=== PATIENT | female | born 1960 | race Caucasian/White ===

== ENCOUNTER 2021-08-09 18:06 | Inpatient (IN) | payer MEDICAID ==
[~2021-08-09] VITALS: Ht 157.5 cm; Wt 45.0 kg
[~2021-08-09 18:06] MED LIST: HYDR-4383 PO; PANT-47 PO; PANT40TA39 PO; RANI-648 PO
[2021-08-09] MEDS ORDERED: normal saline 1000ML IV soln IVB ONE (18:25)
[2021-08-09 19:24] LABS: BASOPHILS # (AUTO) 0.1 X10'3 (0-0.2); BASOPHILS % (AUTO) 0.4 % (0-1); EOSINOPHILS # (AUTO) 0.1 X10'3 (0-0.9); EOSINOPHILS % (AUTO) 0.4 % (0-6); HEMATOCRIT 29.1 % (35.0-45.0); HEMOGLOBIN 9.6 g/dl (12.0-16.0); LYMPHOCYTES # (AUTO) 1.7 X10'3 (1.1-4.8); LYMPHOCYTES % (AUTO) 8.4 % (21-51); MEAN CORPUSCULAR HEMOGLOBIN 30.3 PG (27.0-31.0); MEAN CORPUSCULAR HGB CONC 33.1 g/dL (33.0-36.5); MEAN CORPUSCULAR VOLUME 91.5 FL (78-98); MEAN PLATELET VOLUME 8.4 FL (7.4-10.4); MONOCYTES # (AUTO) 1.2 X10'3 (0-0.9); MONOCYTES % (AUTO) 5.8 % (2-12); PLATELET COUNT 308 X10'3 (140-440); RED BLOOD COUNT 3.18 X10'6 (4.20-5.60); RED CELL DISTRIBUTION WIDTH 20.2 % (11.5-14.5)
[2021-08-09 19:36] LABS: LACTIC SEPSIS 1.6 MMOL/L (0.4-2.0)
--- NOTE | 2021-08-09 19:41 | NUR ---
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 PT REFUSED BIOPSY , DIAGNOSED BY UA. PT WAS GOING TO IN HER ROOM AND WAS POSSIBLY MANAGING PAIN WITH RX MORPHINE AND POSSIBLE HERION. PT HAS LONG HISTORY OF DRUG USE AND QUIT USING METH ABOUT 3 MONTHS AGO AFTER CX DIAGNOSIS. PT HAD RECENT VISIT W/ BROTHER AND SON AND THEN DECIDED SHE WOULD GET A BIOPSY. BROTHER STATES HE SPOKE W/ PT THIS MORNING AND SHE WAS MINIMALLY RESPONSIVE BUT DID TALK TO HIM.
[2021-08-09 19:45] LABS: ALANINE AMINOTRANSFERASE 13 U/L (12-78); ALBUMIN 2.4 G/DL (3.4-5.0); ALBUMIN/GLOBULIN RATIO 0.5 (1.1-1.5); ALKALINE PHOSPHATASE 334 IU/L (46-116); AMMONIA < 10 UMOL/L (11-32); ANION GAP 11 (8-16); ASPARTATE AMINO TRANSFERASE 38 U/L (10-37); BILIRUBIN,TOTAL 0.8 MG/DL (0.1-1.0); BLOOD UREA NITROGEN 13 MG/DL (7-18); BUN/CREATININE RATIO 22.8 (6.6-38.0); CALCIUM 10.1 MG/DL (8.5-10.1); CHLORIDE 99 MMOL/L (99-107); CREATININE 0.57 MG/DL (0.40-0.90); GLUCOSE 85 MG/DL (70-104); POTASSIUM 3.8 MMOL/L (3.5-5.1); SODIUM 137 MMOL/L (135-145); TOTAL CARBON DIOXIDE 27.1 MMOL/L (24-32); TOTAL PROTEIN 7.1 G/DL (6.4-8.2); eGFR > 90 ML/MIN
--- NOTE | 2021-08-09 19:48 | NUR ---
ZACK MELÉNDEZ (BROTHER) [phone] FREDERICK ACLDERA (SON) [phone] NEXT OF KIN
[2021-08-09 19:51] LABS: TROPONIN I < 0.04 NG/ML (0.0-0.05)
[2021-08-09 19:54] LABS: ETHANOL < 0.010 GM/DL (0.0-0.010)
[2021-08-09 20:41] LABS: ANISOCYTOSIS 3+; PLATELET ESTIMATE NORMAL; TOTAL CELLS COUNTED 100
[2021-08-09 20:42] LABS: POLYCHROMASIA FEW; STOMATOCYTES FEW
[2021-08-09 21:12] LABS: CLARITY,URINE CLEAR (Clear); COLOR,URINE YELLOW (Yellow); UA COLLECTION TYPE CLN CATCH MIDSTREAM
[2021-08-09 21:13] LABS: GLUCOSE, URINE NEGATIVE (Neg); KETONES,URINE 40 mg/dl (Neg); LEUKOCYTE ESTERASE ,URINE NEGATIVE (Neg); NITRITES, URINE NEGATIVE (Neg); OCCULT BLOOD,URINE NEGATIVE (Neg); PROTEIN,URINE NEGATIVE (Neg); URINE AMPHETAMINE SCREEN POSITIVE (Neg); URINE BARBITUATE SCREEN NEGATIVE (Neg); URINE BENZODIAZEPINES SCREEN NEGATIVE (Neg); URINE CANNABINOID SCREEN POSITIVE (Neg); URINE COCAINE SCREEN NEGATIVE (Neg); URINE METHADONE SCREEN NEGATIVE (Neg); URINE OPIATE SCREEN POSITIVE (Neg); URINE PHENCYCLIDINE SCREEN NEGATIVE (Neg); UROBILINOGEN,URINE >=8.0 E.U/dL (0.2-1.0)
[2021-08-09] MEDS ORDERED: normal saline 1000ML IV soln IV ONE (22:00)
[2021-08-09] MEDS ORDERED: CefTRIAXone 2gm/D5W 50ml BAG 50 ML IV ONE (22:00)
[2021-08-09] MEDS ORDERED: ondansetron/PF 4mg/2ml inj IV PRN (22:05)
[2021-08-09] MEDS ORDERED: potassium Cl 40MEQ/1/2NS 520ml 520 ML IV PRN (22:05)
[2021-08-09] MEDS ORDERED: MSC30T PO (22:08)
[2021-08-09] MEDS ORDERED: HYDR-3965 PO (22:17)
[2021-08-09] MEDS: normal saline 1000ml 1,000 ML IV SCH (22:46)
[2021-08-10] MEDS: normal saline 1000ml 1,000 ML IV SCH ×4 (01:10→23:41)
[2021-08-10 01:22] VITALS: BP 125/71
[2021-08-10] MEDS: dexamethasone 4mg/ml inj IV SCH ×3 (02:00→15:36)
[2021-08-10 06:47] LABS: BASOPHILS % (AUTO) 0.2 % (0-1); EOSINOPHILS # (AUTO) 0.1 X10'3 (0-0.9); EOSINOPHILS % (AUTO) 0.3 % (0-6); HEMATOCRIT 25.2 % (35.0-45.0); HEMOGLOBIN 8.3 g/dl (12.0-16.0); LYMPHOCYTES # (AUTO) 1.5 X10'3 (1.1-4.8); LYMPHOCYTES % (AUTO) 8.4 % (21-51); MEAN CORPUSCULAR HEMOGLOBIN 30.3 PG (27.0-31.0); MEAN CORPUSCULAR HGB CONC 32.8 g/dL (33.0-36.5); MEAN CORPUSCULAR VOLUME 92.4 FL (78-98); MEAN PLATELET VOLUME 8.6 FL (7.4-10.4); MONOCYTES % (AUTO) 5.8 % (2-12); NEUTROPHILS # (AUTO) 15.4 X10'3 (1.8-7.7); NEUTROPHILS % (AUTO) 85.3 % (42-75); PLATELET COUNT 275 X10'3 (140-440); RED BLOOD COUNT 2.73 X10'6 (4.20-5.60); RED CELL DISTRIBUTION WIDTH 20.5 % (11.5-14.5)
--- NOTE | 2021-08-10 06:50 | NUR ---
Received patient from ER at 0200 in catatonic state. VS stable and pt is in no apparent distress.
[2021-08-10 07:10] LABS: ALANINE AMINOTRANSFERASE 12 U/L (12-78); ALBUMIN 1.9 G/DL (3.4-5.0); ALBUMIN/GLOBULIN RATIO 0.5 (1.1-1.5); ALKALINE PHOSPHATASE 276 IU/L (46-116); ANION GAP 15 (8-16); ASPARTATE AMINO TRANSFERASE 33 U/L (10-37); BILIRUBIN,TOTAL 0.7 MG/DL (0.1-1.0); BLOOD UREA NITROGEN 11 MG/DL (7-18); BUN/CREATININE RATIO 22.4 (6.6-38.0); CALCIUM 8.8 MG/DL (8.5-10.1); CHLORIDE 105 MMOL/L (99-107); CREATININE 0.49 MG/DL (0.40-0.90); GLUCOSE 67 MG/DL (70-104); POTASSIUM 3.5 MMOL/L (3.5-5.1); SODIUM 138 MMOL/L (135-145); TOTAL CARBON DIOXIDE 18.4 MMOL/L (24-32); TOTAL PROTEIN 5.8 G/DL (6.4-8.2); eGFR > 90 ML/MIN
[2021-08-10] MEDS: pantoprazole 40 MG vial IV SCH (07:16)
[2021-08-10] MEDS: heparin, porcine 5000 units/ml vial SQ SCH ×2 (07:17→21:38)
[2021-08-10] MEDS: CefTRIAXone/D5W-Rocephin 1gm 50 ML IV SCH (07:34)
[2021-08-10] MEDS: K and/or MAG REPLACEMENT MC SCH ×2 (07:37→19:31)
--- NOTE | 2021-08-10 08:09 | NUR ---
Noted pt with a low BMI using documented wt of 45 kg, though isn't scaled. No recent scaled wt hx in EMR. Pt with AMS on admit, pending physical assessment. Per ED report pt well developed well nourished. Current BMI likely not accurate. Will continue to follow. Addendum: 08/10/21 at [address] Amended: Links added.
--- NOTE | 2021-08-10 11:27 | NUR ---
Pt's brother, Srini Marc, phoned for info. Pt is asleep and too lethargic to take his call. His number is [phone]. Srini said he is arranging to visit pt from out of state, along with his other sister, as soon as possible. Also, pt's boyfriend, Saul Luong ([phone]), phoned for information. Pt is too lethargic to take phone call. He stated he would like the pt or the pt's nurse to call him. WILIAN Talbert, notified.
--- NOTE | 2021-08-10 17:33 | NUR ---
Pt lying in bed. Alert and oriented to name. VS within normal limits. Pt only says "Cold Pepsi". Meds tolerated well this shift. Pt is not verbalizing pain but does not appear to be in pain. Update given to brother, Srini Marc, via telephone. Nurse informed that patient has not voided this shift. Pt voided a large amount around 1700 but unable to calculate due to incontinence. Will continue to monitor.
[2021-08-10 18:00] VITALS: BP 125/70
[2021-08-10] MEDS ORDERED: acetaminophen 120MG suppository, rectal RC PRN (18:25)
--- NOTE | 2021-08-10 18:53 | NUR ---
Patient in room [facility]. I have received report from CRISTIANO CEDEON and had the opportunity to ask questions and assume patient care.
[2021-08-10] MEDS: morphine 2 MG/ML inj. syringe IV PRN (23:44)
[2021-08-11] VITALS: BP 112/83
[2021-08-11] MEDS ORDERED: LIDOcaine 2% 10ml TOPICAL JELLY (Urojet) TP ONE (01:00)
[2021-08-11] MEDS: morphine 2 MG/ML inj. syringe IV PRN (05:40)
[2021-08-11] MEDS: normal saline 1000ml 1,000 ML IV SCH ×3 (05:40→21:31)
[2021-08-11 06:20] LABS: BASOPHILS % (AUTO) 0.1 % (0-1); EOSINOPHILS % (AUTO) 0 % (0-6); HEMATOCRIT 29.2 % (35.0-45.0); HEMOGLOBIN 9.3 g/dl (12.0-16.0); LYMPHOCYTES # (AUTO) 1.6 X10'3 (1.1-4.8); LYMPHOCYTES % (AUTO) 5.9 % (21-51); MEAN CORPUSCULAR HEMOGLOBIN 30.7 PG (27.0-31.0); MEAN CORPUSCULAR VOLUME 96.1 FL (78-98); MEAN PLATELET VOLUME 8.8 FL (7.4-10.4); MONOCYTES # (AUTO) 0.8 X10'3 (0-0.9); MONOCYTES % (AUTO) 3.1 % (2-12); NEUTROPHILS # (AUTO) 24.2 X10'3 (1.8-7.7); NEUTROPHILS % (AUTO) 90.9 % (42-75); PLATELET COUNT 320 X10'3 (140-440); RED BLOOD COUNT 3.03 X10'6 (4.20-5.60); RED CELL DISTRIBUTION WIDTH 21.3 % (11.5-14.5)
[2021-08-11 06:24] LABS: WHITE BLOOD COUNT 26.6 X10'3 (4.5-11.0)
--- NOTE | 2021-08-11 06:32 | NUR ---
Problems reprioritized. Patient report given, questions answered & plan of care reviewed with CRISTIANO CEDENO.
[2021-08-11 06:35] LABS: ALANINE AMINOTRANSFERASE 10 U/L (12-78); ALBUMIN 1.9 G/DL (3.4-5.0); ALBUMIN/GLOBULIN RATIO 0.5 (1.1-1.5); ALKALINE PHOSPHATASE 277 IU/L (46-116); ANION GAP 18 (8-16); ASPARTATE AMINO TRANSFERASE 25 U/L (10-37); BILIRUBIN,TOTAL 0.7 MG/DL (0.1-1.0); BLOOD UREA NITROGEN 12 MG/DL (7-18); CALCIUM 8.7 MG/DL (8.5-10.1); CHLORIDE 107 MMOL/L (99-107); CREATININE 0.63 MG/DL (0.40-0.90); GLUCOSE 86 MG/DL (70-104); POTASSIUM 3.7 MMOL/L (3.5-5.1); SODIUM 141 MMOL/L (135-145); eGFR > 90 ML/MIN
--- NOTE | 2021-08-11 06:44 | NUR ---
Critical lab of WBC 26.6 reported to Lacie at 0645.
[2021-08-11 07:15] LABS: LYMPHOCYTES % (MANUAL) 2 % (21-51); MONOCYTES % (MANUAL) 1 % (2-12); NEUTROPHILS % (MANUAL) 94 % (42-75); TOTAL CELLS COUNTED 100
[2021-08-11 07:16] LABS: ANISOCYTOSIS 3+; LARGE PLATELETS FEW; PLATELET ESTIMATE NORMAL
[2021-08-11 08:00] VITALS: BP 128/81
[2021-08-11] MEDS: K and/or MAG REPLACEMENT MC SCH ×2 (08:00→20:00)
[2021-08-11] MEDS: pantoprazole 40 MG vial IV SCH ×2 (09:10→09:16)
[2021-08-11] MEDS: heparin, porcine 5000 units/ml vial SQ SCH ×2 (09:10→21:29)
[2021-08-11] MEDS: acetaminophen 325mg tablet PO PRN ×2 (09:11→09:17)
[2021-08-11] MEDS: CefTRIAXone/D5W-Rocephin 1gm 50 ML IV SCH (09:16)
[2021-08-11 11:00] VITALS: BP 116/70
--- NOTE | 2021-08-11 12:47 | NUR ---
Call from pt's brother Srini Marc ([phone]). He acknowledged the patient is more awake today, and then he stated the pt's mom of cancer and the pt believed that the biopsies and treatment her mom received is what "killed her", therefore the pt has rejected any treatment offers, or a recommended biopsy for herself in the past. Srini stated he was recently able to assist the pt at being seen at [facility] in [place]. He said the pt "seemed to almost agree to have the biopsy and treatment" but he had to leave [place] and return to his own home in another state. Thus the patient did not follow up with the oncology center. Dr Sullivan is aware and will be calling Srini, as well as summoning orders from [facility], ordering PTx, and a diet. Gali RN is aware.
--- NOTE | 2021-08-11 13:14 | NUR ---
Pt with a low Carlos of 12. No edema or wounds per physical assessment. Noted patient's diet has just been advanced from NPO to full liquids, dinner to be first meal. Will continue to follow closely. Addendum: 08/11/21 at [address] Amended: Links added.
[2021-08-11] MEDS: HYDROcodone/acetaminophen 10/325mg tab PO PRN (15:28)
--- NOTE | 2021-08-11 17:03 | NUR ---
Malnutrition consult: Pt reports wt loss with decreased appetite per malnutrition risk screen with RN. Current documented wt is not scaled and no wt hx in EMR. Per ED report pt well developed well nourished. Current BMI likely not accurate. Pt with no documented significant decrease in muscle strength or edema. Pt currently lacks a minimum of two criteria for malnutrition. Will continue to follow and monitor qualifying criteria. Addendum: 08/11/21 at [address] Amended: Links added.
[2021-08-11 18:00] VITALS: BP 125/76
--- NOTE | 2021-08-11 18:54 | NUR ---
Patient in room [facility]. I have received report from CRISTIANO CEDENO and had the opportunity to ask questions and assume patient care.
[2021-08-11] MEDS: lactobacillus rhamnosus 10,000 MMU CELLS/CAPSULE PO SCH (21:33)
[2021-08-12] VITALS: BP 122/83
[2021-08-12] MEDS: morphine 2 MG/ML inj. syringe IV PRN ×3 (01:23→18:23)
[2021-08-12] MEDS: normal saline 1000ml 1,000 ML IV SCH ×3 (03:25→18:31)
--- NOTE | 2021-08-12 06:34 | NUR ---
Patient in room [facility]. I have received report from patrice CEDENO and had the opportunity to ask questions and assume patient care.
--- NOTE | 2021-08-12 06:35 | NUR ---
Problems reprioritized. Patient report given, questions answered & plan of care reviewed with IBRAHIMA CEDENO.
[2021-08-12 07:56] LABS: BASOPHILS % (AUTO) 0 % (0-1); EOSINOPHILS % (AUTO) 0.2 % (0-6); HEMATOCRIT 24.2 % (35.0-45.0); HEMOGLOBIN 8.1 g/dl (12.0-16.0); LYMPHOCYTES # (AUTO) 1.4 X10'3 (1.1-4.8); LYMPHOCYTES % (AUTO) 7.5 % (21-51); MEAN CORPUSCULAR HEMOGLOBIN 30.4 PG (27.0-31.0); MEAN CORPUSCULAR HGB CONC 33.6 g/dL (33.0-36.5); MEAN CORPUSCULAR VOLUME 90.5 FL (78-98); MONOCYTES # (AUTO) 0.8 X10'3 (0-0.9); MONOCYTES % (AUTO) 4.1 % (2-12); NEUTROPHILS # (AUTO) 16.7 X10'3 (1.8-7.7); NEUTROPHILS % (AUTO) 88.2 % (42-75); PLATELET COUNT 290 X10'3 (140-440); RED BLOOD COUNT 2.67 X10'6 (4.20-5.60); RED CELL DISTRIBUTION WIDTH 20.8 % (11.5-14.5)
[2021-08-12] MEDS: K and/or MAG REPLACEMENT MC SCH ×2 (08:00→20:00)
[2021-08-12] MEDS: lactobacillus rhamnosus 10,000 MMU CELLS/CAPSULE PO SCH ×2 (08:00→21:10)
[2021-08-12 08:21] LABS: ALANINE AMINOTRANSFERASE 13 U/L (12-78); ALBUMIN 1.9 G/DL (3.4-5.0); ALBUMIN/GLOBULIN RATIO 0.5 (1.1-1.5); ALKALINE PHOSPHATASE 266 IU/L (46-116); ANION GAP 14 (8-16); ASPARTATE AMINO TRANSFERASE 27 U/L (10-37); BILIRUBIN,TOTAL 0.7 MG/DL (0.1-1.0); BLOOD UREA NITROGEN 7 MG/DL (7-18); BUN/CREATININE RATIO 13.7 (6.6-38.0); CALCIUM 8.1 MG/DL (8.5-10.1); CHLORIDE 103 MMOL/L (99-107); CREATININE 0.51 MG/DL (0.40-0.90); GLUCOSE 76 MG/DL (70-104); SODIUM 137 MMOL/L (135-145); TOTAL CARBON DIOXIDE 20.3 MMOL/L (24-32); TOTAL PROTEIN 5.4 G/DL (6.4-8.2); eGFR > 90 ML/MIN
[2021-08-12 08:30] LABS: POTASSIUM 2.5 MMOL/L (3.5-5.1)
[2021-08-12] MEDS: potassium Cl 40MEQ/1/2NS 520ml 520 ML IV PRN ×2 (09:29→14:42)
[2021-08-12] MEDS: CefTRIAXone/D5W-Rocephin 1gm 50 ML IV SCH (09:29)
[2021-08-12] MEDS: HYDROcodone/acetaminophen 10/325mg tab PO PRN ×3 (09:30→21:10)
[2021-08-12] MEDS: pantoprazole 40 MG vial IV SCH (09:31)
[2021-08-12] MEDS: heparin, porcine 5000 units/ml vial SQ SCH ×2 (09:31→21:11)
[2021-08-12 10:07] VITALS: BP 120/79
[2021-08-12 11:45] VITALS: BP 118/73
[2021-08-12] MEDS: loperamide 2mg capsule PO PRN ×2 (14:43→21:10)
[2021-08-12 17:26] LABS: MAGNESIUM 1.3 MG/DL (1.5-2.4)
[2021-08-12 18:00] VITALS: BP 120/74
--- NOTE | 2021-08-12 18:50 | NUR ---
patient very painful and restless at times.medicated with morphine with relief but refused norco, stated " i dont want to be a hypocrite" very confused at times. Reluctant for care. BM x6 DR Sullivan stated that patient can have rectal tube placed but to try immodium first. A dose of immodium given to patient with good effect. Report given to Prudence.
--- NOTE | 2021-08-12 18:55 | NUR ---
Patient in room [facility]. I have received report from IBRAHIMA CEDENO and had the opportunity to ask questions and assume patient care.
[2021-08-12 20:39] LABS: MAGNESIUM 1.2 MG/DL (1.5-2.4); POTASSIUM 3.6 MMOL/L (3.5-5.1)
[2021-08-13] VITALS: BP 125/86
[2021-08-13] MEDS ORDERED: potassium Cl 20 mEq SR tablet PO PRN ×2 (00:25)
[2021-08-13] MEDS ORDERED: magnesium 4gm in 100ml NS 100 ML IV PRN (00:25)
[2021-08-13] MEDS: morphine 2 MG/ML inj. syringe IV PRN ×2 (00:37→20:19)
[2021-08-13] MEDS: magnesium Cl slow-release 64mg tablet PO PRN ×2 (00:37→20:25)
[2021-08-13] MEDS: normal saline 1000ml 1,000 ML IV SCH ×2 (00:44→06:05)
--- NOTE | 2021-08-13 06:22 | NUR ---
Problems reprioritized. Patient report given, questions answered & plan of care reviewed with IBRAHIMA CEDENO.
[2021-08-13 06:37] LABS: BASOPHILS % (AUTO) 0.1 % (0-1); EOSINOPHILS # (AUTO) 0.1 X10'3 (0-0.9); EOSINOPHILS % (AUTO) 0.3 % (0-6); HEMATOCRIT 25.3 % (35.0-45.0); HEMOGLOBIN 8.7 g/dl (12.0-16.0); LYMPHOCYTES # (AUTO) 1.4 X10'3 (1.1-4.8); MEAN CORPUSCULAR HEMOGLOBIN 31.3 PG (27.0-31.0); MEAN CORPUSCULAR HGB CONC 34.6 g/dL (33.0-36.5); MEAN CORPUSCULAR VOLUME 90.6 FL (78-98); MEAN PLATELET VOLUME 8.5 FL (7.4-10.4); MONOCYTES # (AUTO) 0.9 X10'3 (0-0.9); MONOCYTES % (AUTO) 4.2 % (2-12); NEUTROPHILS # (AUTO) 17.9 X10'3 (1.8-7.7); NEUTROPHILS % (AUTO) 88.4 % (42-75); PLATELET COUNT 306 X10'3 (140-440); RED BLOOD COUNT 2.79 X10'6 (4.20-5.60); RED CELL DISTRIBUTION WIDTH 21.4 % (11.5-14.5); WHITE BLOOD COUNT 20.3 X10'3 (4.5-11.0)
[2021-08-13 06:41] LABS: ALANINE AMINOTRANSFERASE 13 U/L (12-78); ALBUMIN 2.1 G/DL (3.4-5.0); ALBUMIN/GLOBULIN RATIO 0.6 (1.1-1.5); ALKALINE PHOSPHATASE 306 IU/L (46-116); ANION GAP 13 (8-16); ASPARTATE AMINO TRANSFERASE 32 U/L (10-37); BILIRUBIN,TOTAL 0.7 MG/DL (0.1-1.0); BLOOD UREA NITROGEN 5 MG/DL (7-18); BUN/CREATININE RATIO 10.4 (6.6-38.0); CALCIUM 8.3 MG/DL (8.5-10.1); CHLORIDE 100 MMOL/L (99-107); CREATININE 0.48 MG/DL (0.40-0.90); GLUCOSE 68 MG/DL (70-104); MAGNESIUM 1.2 MG/DL (1.5-2.4); SODIUM 135 MMOL/L (135-145); TOTAL CARBON DIOXIDE 22.1 MMOL/L (24-32); TOTAL PROTEIN 5.8 G/DL (6.4-8.2); eGFR > 90 ML/MIN
--- NOTE | 2021-08-13 06:53 | NUR ---
Patient in room [facility]. I have received report from Marilynn CEDENO and had the opportunity to ask questions and assume patient care.
[2021-08-13 07:00] VITALS: BP 130/70
[2021-08-13] MEDS: pantoprazole 40mg Tablet.DR PO SCH (07:30)
[2021-08-13] MEDS: lactobacillus rhamnosus 10,000 MMU CELLS/CAPSULE PO SCH ×2 (08:00→20:25)
[2021-08-13] MEDS: heparin, porcine 5000 units/ml vial SQ SCH ×2 (08:00→20:25)
[2021-08-13] MEDS: CefTRIAXone/D5W-Rocephin 1gm 50 ML IV SCH (08:00)
[2021-08-13] MEDS: K and/or MAG REPLACEMENT MC SCH ×3 (08:00→21:57)
[2021-08-13 10:01] LABS: HYPERSEGMENTED NEUTROPHILS 1+; PLATELET ESTIMATE NORMAL; TOTAL CELLS COUNTED 100; TOXIC GRANULATION 2+
[2021-08-13 10:02] LABS: ANISOCYTOSIS 3+; POIKILOCYTOSIS FEW; POLYCHROMASIA 1+; SMUDGE CELLS FEW
[2021-08-13 11:00] VITALS: BP 132/83
--- NOTE | 2021-08-13 12:01 | NUR ---
patient difficult to give am meds spitting them out repeatedly. Responds minimally to instructions. will continue to monitor
[2021-08-13] MEDS: potassium Cl 40MEQ/1/2NS 520ml 520 ML IV PRN ×2 (15:07→20:35)
[2021-08-13] MEDS: morphine 10mg/0.5ml (conc. morphine) oral syringe PO PRN ×2 (16:32→23:05)
[2021-08-13] MEDS: potassium CL 20mEq in D5-1/2NS 1,000 ML IV SCH (16:32)
[2021-08-13 18:00] VITALS: BP 141/89
--- NOTE | 2021-08-13 18:26 | NUR ---
Patient in room [facility]. I have received report from WILIAN Brunner and had the opportunity to ask questions and assume patient care.
--- NOTE | 2021-08-13 18:33 | NUR ---
Patient seen by Dr Reddy commenced on Roxanol with good effect. BMx1. remains single sentence responses. Spat out this am half of oral K replacement. spoke with pharmacist Prisca recommended to have two more K 40mey IV bags for replacement. report given to Tatiana CEDENO
[2021-08-13] MEDS: HYDROcodone/acetaminophen 10/325mg tab PO PRN (20:48)
--- NOTE | 2021-08-13 21:50 | NUR ---
Patient's "nephew" Elias Le along with girlfriend Gianna called multiple times through ER registration as well as personal phone to surgical floor demanding for the patient to be released "She called me and said she wants to go home. If she says she wants to go home, she needs to be home. This is Margie. You can't motherfucking hold her like that up there. She needs to come home." I informed him that the patient is altered to the point where she can't even say her name or tell where she is, and explained risks of leaving AMA especially when she is sick and extremely painful. Nephew refused to listen and kept demanding her to be released home. I spoke to patient's brother Srini Marc who verbalized that he is the point of contact and POA (we do not have any papers indicating though), he stated that it is better for the patient to wait till the next day morning and that he will have a talk with the doctors before making any decisions. I informed entrepreneurship program director regarding this, who then relayed the message to Salesperson [employer] RN. Salesperson [employer] RN then intervened and spoke to the nephew as well as the girlfriend and brought them to an understanding. Patient will be staying the night here. Will continue to monitor.
--- NOTE | 2021-08-13 21:53 | NUR ---
PAGER ID: [phone] MESSAGE: [phone] Tatiana CEDENO for Jillianfortino Govea in 358A. Patient confused, but wants to go home AMA and her nephew, Elias is yelling at us saying she needs to be released right now. Please call back. Thanks
[2021-08-14] VITALS: BP 119/73
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
--- NOTE | 2021-08-14 06:14 | NUR ---
Problems reprioritized. Patient report given, questions answered & plan of care reviewed with WILIAN Verma.
[2021-08-14 06:24] LABS: BASOPHILS % (AUTO) 0.2 % (0-1); EOSINOPHILS % (AUTO) 0.2 % (0-6); HEMATOCRIT 28.6 % (35.0-45.0); HEMOGLOBIN 9.4 g/dl (12.0-16.0); LYMPHOCYTES # (AUTO) 1.6 X10'3 (1.1-4.8); LYMPHOCYTES % (AUTO) 6.4 % (21-51); MEAN CORPUSCULAR HEMOGLOBIN 30.5 PG (27.0-31.0); MEAN CORPUSCULAR VOLUME 92.3 FL (78-98); MEAN PLATELET VOLUME 8.7 FL (7.4-10.4); MONOCYTES # (AUTO) 1.1 X10'3 (0-0.9); MONOCYTES % (AUTO) 4.4 % (2-12); NEUTROPHILS # (AUTO) 21.7 X10'3 (1.8-7.7); NEUTROPHILS % (AUTO) 88.8 % (42-75); PLATELET COUNT 272 X10'3 (140-440); RED CELL DISTRIBUTION WIDTH 21.1 % (11.5-14.5); WHITE BLOOD COUNT 24.5 X10'3 (4.5-11.0)
--- NOTE | 2021-08-14 06:41 | NUR ---
Patient in room [facility]. I have received report from Tatiana CEDENO and had the opportunity to ask questions and assume patient care.
[2021-08-14 06:53] LABS: ALANINE AMINOTRANSFERASE 15 U/L (12-78); ALBUMIN 2.2 G/DL (3.4-5.0); ALBUMIN/GLOBULIN RATIO 0.6 (1.1-1.5); ALKALINE PHOSPHATASE 357 IU/L (46-116); ANION GAP 10 (8-16); ASPARTATE AMINO TRANSFERASE 34 U/L (10-37); BILIRUBIN,TOTAL 0.8 MG/DL (0.1-1.0); BLOOD UREA NITROGEN 4 MG/DL (7-18); CALCIUM 8.5 MG/DL (8.5-10.1); CHLORIDE 100 MMOL/L (99-107); CREATININE 0.57 MG/DL (0.40-0.90); GLUCOSE 95 MG/DL (70-104); MAGNESIUM 1.4 MG/DL (1.5-2.4); POTASSIUM 4.4 MMOL/L (3.5-5.1); SODIUM 132 MMOL/L (135-145); TOTAL CARBON DIOXIDE 22.2 MMOL/L (24-32); TOTAL PROTEIN 6.1 G/DL (6.4-8.2); eGFR > 90 ML/MIN
--- NOTE | 2021-08-14 07:03 | NUR ---
Seen patient this am during initial rounds. Patient alert but not answering my question if I ask her how she's doing. Social service consult ordered for this patient due to her current situation reported by the inspector of weights and measures RN regarding her family dynamic
[2021-08-14] MEDS: CefTRIAXone/D5W-Rocephin 1gm 50 ML IV SCH (07:39)
[2021-08-14] MEDS: pantoprazole 40mg Tablet.DR PO SCH (07:41)
[2021-08-14] MEDS: lactobacillus rhamnosus 10,000 MMU CELLS/CAPSULE PO SCH ×2 (07:41→19:50)
[2021-08-14] MEDS: heparin, porcine 5000 units/ml vial SQ SCH ×2 (07:50→19:59)
--- NOTE | 2021-08-14 07:54 | NUR ---
Offered Heparin injection to patient, explained to her the reason for giving it and how I am going to administer it. I already drawn the medication from the vial, as I was about to give it to patient, patient yelled at me said "liar!".
[2021-08-14 08:00] VITALS: BP 149/87
[2021-08-14] MEDS: K and/or MAG REPLACEMENT MC SCH ×2 (08:00→19:51)
[2021-08-14 10:45] LABS: NEUTROPHILS % (MANUAL) 77 % (42-75); TOTAL CELLS COUNTED 100
[2021-08-14 10:46] LABS: ANISOCYTOSIS 3+; BANDS% (MANUAL) 17 % (0-10); BASOPHILS % (MANUAL) 1 % (0-1); LARGE PLATELETS FEW; LYMPHOCYTES % (MANUAL) 2 % (21-51); MONOCYTES % (MANUAL) 3 % (2-12); PLATELET ESTIMATE NORMAL; POLYCHROMASIA 1+; SCHISTOCYTES FEW; TOXIC GRANULATION 1+
[2021-08-14 11:00] VITALS: BP_SYST 110; BP_SYST 124; BP_DIAS 59; BP_DIAS 76
--- NOTE | 2021-08-14 11:25 | NUR ---
Late entry: Got a phone call this am from the patient's brother Srini, gave him update. Per Srini, patient does not have advanced directive or DPOA. He said he has been the one that been taking care of her and coordinating with the doctors regarding her health. Per Srini, the patient did not like to be in the hospital and that patient would rather be at home. He said to me "I think it would be at her best interest if she eventually goes home and be on hospice!" He requesting the upper caser to call him regarding discharge planning. I have communicated this request to Catalina CEDENO, Cattle Tester.
[2021-08-14] MEDS: magnesium Cl slow-release 64mg tablet PO PRN (13:40)
--- NOTE | 2021-08-14 14:23 | NUR ---
Initial: Pt admitted w/ ALOC, hypercalcemia, and metastatic bone mets per EMR. 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 Pt had 50% of two meals 08/11 on Regular diet though 0% since then. Pt noted to be confused A&O x 1, would likely benefit from TF if continues to refuse PO, see recs below. LBM 08/13, will continue to monitor. Recs: 1. Continue Regular diet as tolerated, encourage PO 2. IF continues w/ refusal, continuous TF using Jevity 1.2 at 50ml/hr goal; consider Nathaniel w/ TF 3. IF TF, additional free water 100ml Q4H 4. IF TF, PALB QM/Th; daily wts 5. Bowel care per rx Addendum: 08/14/21 at [address] Amended: Links added.
[2021-08-14] MEDS: morphine 10mg/0.5ml (conc. morphine) oral syringe PO PRN (17:07)
--- NOTE | 2021-08-14 17:58 | NUR ---
RECOMMEND: 1. Daily bathing with no rinse skin cleanser. 2. Cream/Lotion to be applied to skin after bathing. 3. Claudia care Q shift and prn soiling followed by with Barrier Cream. 4. Turn patient Q 1-2 hrs and reposition with pillows. 5. Float heels to offload pressure. 6. Hydrophylic foam to sacrum. To be changed by nursing Q5D.
[2021-08-14 18:00] VITALS: BP 141/84
--- NOTE | 2021-08-14 18:07 | NUR ---
Patient in room [facility]. I have received report from WILIAN Verma and had the opportunity to ask questions and assume patient care.
--- NOTE | 2021-08-14 18:36 | NUR ---
Problems reprioritized. Patient report given, questions answered & plan of care reviewed with Tatiana CEDENO.
[2021-08-14] MEDS: potassium CL 20mEq in D5-1/2NS 1,000 ML IV SCH ×2 (19:51→22:49)
[2021-08-14] MEDS: morphine 2 MG/ML inj. syringe IV PRN (19:52)
[2021-08-15] VITALS: BP 127/83
[2021-08-15] MEDS: morphine 10mg/0.5ml (conc. morphine) oral syringe PO PRN ×3 (01:30→16:04)
--- NOTE | 2021-08-15 06:05 | NUR ---
Problems reprioritized. Patient report given, questions answered & plan of care reviewed with WILIAN Verma.
--- NOTE | 2021-08-15 06:27 | NUR ---
Patient in room [facility]. I have received report from Tatiana CEDENO and had the opportunity to ask questions and assume patient care.
[2021-08-15 06:50] LABS: MAGNESIUM 1.4 MG/DL (1.5-2.4); POTASSIUM 3.5 MMOL/L (3.5-5.1)
[2021-08-15 07:00] VITALS: BP 130/78
[2021-08-15] MEDS: heparin, porcine 5000 units/ml vial SQ SCH ×2 (08:00→21:00)
[2021-08-15] MEDS: K and/or MAG REPLACEMENT MC SCH ×2 (08:00→21:18)
[2021-08-15] MEDS: HYDROcodone/acetaminophen 10/325mg tab PO PRN (08:08)
--- NOTE | 2021-08-15 08:29 | NUR ---
Paged Dr. Reddy PAGER ID: [phone] MESSAGE: Surgical Bayron RN ext [phone]. RE: Jillian Govea. Pt WBC yesterday was 24.5. Would you like repeat CBC for today?
[2021-08-15] MEDS: lactobacillus rhamnosus 10,000 MMU CELLS/CAPSULE PO SCH ×2 (08:37→21:00)
[2021-08-15] MEDS: pantoprazole 40mg Tablet.DR PO SCH (08:37)
[2021-08-15] MEDS: magnesium Cl slow-release 64mg tablet PO PRN (08:44)
--- NOTE | 2021-08-15 08:50 | NUR ---
Patient still refused Heparin SQ dose today despite explaining the benefit to her
[2021-08-15 11:00] VITALS: BP 130/85
[2021-08-15] MEDS: nicotine 14mg patch - 24hr TD SCH (11:08)
[2021-08-15 11:44] LABS: BASOPHILS # (AUTO) 0.1 X10'3 (0-0.2); BASOPHILS % (AUTO) 0.2 % (0-1); EOSINOPHILS # (AUTO) 0.1 X10'3 (0-0.9); EOSINOPHILS % (AUTO) 0.6 % (0-6); HEMATOCRIT 29.6 % (35.0-45.0); HEMOGLOBIN 9.6 g/dl (12.0-16.0); LYMPHOCYTES # (AUTO) 1.5 X10'3 (1.1-4.8); LYMPHOCYTES % (AUTO) 6.7 % (21-51); MEAN CORPUSCULAR HEMOGLOBIN 30.3 PG (27.0-31.0); MEAN CORPUSCULAR HGB CONC 32.6 g/dL (33.0-36.5); MEAN CORPUSCULAR VOLUME 93.1 FL (78-98); MEAN PLATELET VOLUME 8.5 FL (7.4-10.4); MONOCYTES # (AUTO) 1.7 X10'3 (0-0.9); MONOCYTES % (AUTO) 7.6 % (2-12); NEUTROPHILS # (AUTO) 19.2 X10'3 (1.8-7.7); NEUTROPHILS % (AUTO) 84.9 % (42-75); PLATELET COUNT 230 X10'3 (140-440); RED BLOOD COUNT 3.18 X10'6 (4.20-5.60); RED CELL DISTRIBUTION WIDTH 21.4 % (11.5-14.5); WHITE BLOOD COUNT 22.6 X10'3 (4.5-11.0)
--- NOTE | 2021-08-15 13:22 | NUR ---
Dr. Reddy was notified today that patient has been refusing Heparin SQ, I asked him if he wants to order SCD instead for DVT prophylaxis he did not answered me instead he said to me "Just document refused!"
--- NOTE | 2021-08-15 17:11 | NUR ---
Patient's peripheral IV on her left forearm got infiltrated, discontinued. Attempted to place a new IV without success. Charge nurse Elisa notified about this.
--- NOTE | 2021-08-15 18:36 | NUR ---
Problems reprioritized. Patient report given, questions answered & plan of care reviewed with Tatiana CEDENO.
[2021-08-15 20:00] VITALS: BP 122/96
[2021-08-16] VITALS: BP 141/84
[2021-08-16 06:21] LABS: MAGNESIUM 1.3 MG/DL (1.5-2.4); POTASSIUM 3.3 MMOL/L (3.5-5.1)
--- NOTE | 2021-08-16 06:54 | NUR ---
Problems reprioritized. Patient report given, questions answered & plan of care reviewed with WILIAN Thomas
--- NOTE | 2021-08-16 07:20 | NUR ---
Patient in room [facility]. I have received report from Tatiana CEDENO and had the opportunity to ask questions and assume patient care.
[2021-08-16 08:00] VITALS: BP 143/89
[2021-08-16] MEDS: pantoprazole 40mg Tablet.DR PO SCH (08:32)
[2021-08-16] MEDS: lactobacillus rhamnosus 10,000 MMU CELLS/CAPSULE PO SCH (08:32)
[2021-08-16] MEDS: heparin, porcine 5000 units/ml vial SQ SCH (08:33)
[2021-08-16] MEDS: nicotine 14mg patch - 24hr TD SCH (08:33)
--- NOTE | 2021-08-16 11:16 | NUR ---
Per MAURICIO Arnold, pt is to go home w/ mandel. Hospice RNs to open to service today at home.
--- NOTE | 2021-08-16 11:30 | NUR ---
Attempted to call caregiver, [place], per CM notes upon pt being transported home. Voicemail recording stated "[place] Olivier" but the voice mail is "full".
--- NOTE | 2021-08-16 12:27 | NUR ---
Potassium level was 3.3, magnesium : 1.3, Elisa notified Dr Russell but stated that no replacement needed as patient is on hospice Patient discharge in stable condition. [facility] not D/C (Elisa spoke with Catalina , stated that [facility] not to be d/c as patient will resume hospice today), No IV on patient, all personal item given to patient. patient accompanied by [facility] personnel, let unit at 11:20
== END 2021-08-16 11:34 | disposition hospice, home (50) | DRG 52 ==
LOC: ER 18:08 → ED HOLD 22:04 → SUR 3N 23:49
PROVIDERS: ADMIT Internal Medicine; ATTEND Internal Medicine
DX: G93.41 Metabolic encephalopathy (principal); E43 Unspecified severe protein-calorie malnutrition; C79.51 Secondary malignant neoplasm of bone; E83.51 Hypocalcemia; R47.01 Aphasia; D64.9 Anemia, unspecified; C34.90 Malignant neoplasm of unspecified part of unspecified bronchus or lung; N39.0 Urinary tract infection, site not specified; D72.825 Bandemia; E83.42 Hypomagnesemia; F15.90 Other stimulant use, unspecified, uncomplicated; F12.90 Cannabis use, unspecified, uncomplicated; Z86.73 Personal history of transient ischemic attack (TIA), and cerebral infarction without residual deficits; Z88.5 Allergy status to narcotic agent; Z79.899 Other long term (current) drug therapy; E87.6 Hypokalemia; Z68.1 Body mass index [BMI] 19.9 or less, adult
CPT/HCPCS: 36415; 70450; 71045; 80053; 80305; 80320; 81003; 82140; 82330; 82948; 83605; 83735; 84132; 84145; 84443; 84484; 85007; 85025; 87040; 87081; 93005; 96360; 96361; 97110; 97162; 97530; 99285; C9113; G0378; J0696; J1100; J1644; J2270; J3480; J7030